=== PATIENT | male | born 1960 | race African-American/Black ===

== ENCOUNTER 2016-05-12 22:04 | Emergency (ER) | payer MEDICAID ==
[~2016-05-12] VITALS: Ht 170.2 cm; Wt 73.0 kg
[~2016-05-12 22:04] MED LIST: AMLO5 PO; LISI20 PO; MULT-28 PO
[2016-05-12 22:07] VITALS: BP 143/93; PULSE 71; RESP 16; TEMP 98; O2SAT 99
[2016-05-12 22:52] LABS: AUTOMATED NEUTROPHIL # 2.9 TH/MM3 (1.8-7.7); BASOPHIL # 0.1 TH/MM3 (0-0.2); BASOPHIL % 1.2 % (0.0-2.0); EOSINOPHIL # 0.5 TH/MM3 (0-0.4); EOSINOPHIL % 6.2 % (0.0-4.0); HEMATOCRIT 38.7 % (39.0-51.0); HEMO FLAGS DIFF FINAL; LYMPH % 45.8 % (9.0-44.0); LYMPHOCYTE # 3.6 TH/MM3 (1.0-4.8); MEAN CELL VOLUME 88.7 FL (80.0-100.0); MEAN CORPUSCULAR HEMOGLOBIN 30.3 PG (27.0-34.0); MEAN CORPUSCULAR HGB CONC 34.2 % (32.0-36.0); MONO % 9.5 % (0.0-8.0); NEUT % 37.3 % (16.0-70.0); PLATELET COUNT 282 TH/MM3 (150-450); RED BLOOD COUNT 4.36 MIL/MM3 (4.50-5.90); RED CELL DISTRIBUTION WIDTH 15.1 % (11.6-17.2); WHITE BLOOD COUNT 7.9 TH/MM3 (4.0-11.0)
[2016-05-12 22:56] LABS: BLOOD, URINE NEG (NEG); GLUCOSE,URINE NEG (NEG); KETONE, URINE NEG (NEG); MUCUS URINE FEW /lpf (OCC); NITRITE,URINE NEG (NEG); PH, URINE 6.5 (5.0-8.5); URINE COLOR YELLOW (YELLW/STRAW)
[2016-05-12 22:57] LABS: COMMENT (UR) CULT NOT INDICATED; CULTURE IF INDICATED CULT NOT INDICATED
[2016-05-12 23:20] LABS: ANION GAP 7 MEQ/L (5-15); AST (GOT) 47 U/L (15-37); BICARBONATE 26.9 MEQ/L (21.0-32.0); BLOOD UREA NITROGEN 20 MG/DL (7-18); CHLORIDE 108 MEQ/L (98-107); GLOMERULAR FILTRATION RATE 76 ML/MIN (>89); POTASSIUM 3.9 MEQ/L (3.5-5.1); SODIUM (NA) 142 MEQ/L (136-145)
[2016-05-12 23:24] LABS: ALKALINE PHOSPHATASE 54 U/L (45-117); ALT (GPT) 50 U/L (12-78); TOTAL BILIRUBIN ADULT 0.4 MG/DL (0.2-1.0)
[2016-05-12] MEDS ORDERED: SODIUM CHLOR 0.9% 1000 ML INJ 1,000 ML IV SCH (23:26)
--- NOTE | 2016-05-12 23:29 | PD ---
HPI Chief Complaint: Flank/Kidney Pain Time Seen by Provider: 23:22 Travel History International Travel<30 days: No Contact w/Intl Traveler<30days: No Traveled to known affect area: No History of Present Illness HPI Patient is a 56-year-old male who presents to emergency room with complaints of left-sided flank pain. Patient reports that he has noted increased left sided flank pain that has been ongoing for the past few weeks, reports that symptoms have been intermittent in nature. Patient reports that he has had increased pain today, reports that he came to the emergency room for evaluation of possible kidney stone. Patient reports that he has had kidney stones in the past, reports that the last stone he had he passed on its own and reports that it did not require any urological intervention. Patient denies hematuria, reports some urinary urgency and frequency at this time. Patient with no nausea or vomiting. PFSH Past Medical History Cancer: No Cardiovascular Problems: No Diabetes: No Diminished Hearing: No Endocrine: No Genitourinary: No Hepatitis: No Hiatal Hernia: No Immune Disorder: No Kidney Stones: Yes Musculoskeletal: Yes (OSTEOARTHRITIS ) Neurologic: No Psychiatric: No Respiratory: No Immunizations Current: Yes Thyroid Disease: No Tetanus Vaccination: < 5 Years Influenza Vaccination: No Past Surgical History Abdominal Surgery: No AICD: No Cardiac Surgery: No Ear Surgery: No Endocrine Surgery: No Eye Surgery: No Joint Replacement: Yes (RIGHT HIP REPLACEMENT) Oral Surgery: No Pacemaker: No Thoracic Surgery: No Other Surgery: Yes Social History Alcohol Use: Yes (SOCIAL) Tobacco Use: No Substance Use: No Allergies-Medications (Allergen,Severity, Reaction): Coded Allergies: Penicillin (Verified Allergy, Severe, DOESN'T REMEMBER, FROM CHILDHOOD, ) Reported Meds & Prescriptions Reported Meds & Active Scripts Active Ibuprofen 600 Mg Tab 600 Mg PO Q6H PRN Prinivil 20 mg (Lisinopril) 20 Mg Tab 20 Mg PO Q12 Norvasc (Amlodipine Besylate) 5 Mg Tab 5 Mg PO DAILY Reported Hm One Daily/Iron (Multivitamins/Iron) /Iron Tab 1 Tab PO DAILY Review of Systems General / Constitutional: No: Fever Eyes: No: Visual changes HENT: No: Headaches Cardiovascular: No: Chest Pain or Discomfort Respiratory: No: Shortness of Breath Gastrointestinal: No: Abdominal Pain Genitourinary: Positive: Urgency, Frequency, Dysuria, Flank Pain Musculoskeletal: No: Pain Skin: No Rash Neurologic: No: Weakness Psychiatric: No: Depression Endocrine: No: Polydipsia Hematologic/Lymphatic: No: Easy Bruising Physical Exam Narrative GENERAL: No acute distress, nontoxic SKIN: Warm and dry. HEAD: Atraumatic. Normocephalic. NECK: Trachea midline. No JVD. CARDIOVASCULAR: Regular rate and rhythm. No murmur appreciated. RESPIRATORY: No accessory muscle use. Clear to auscultation. Breath sounds equal bilaterally. GASTROINTESTINAL: Abdomen soft, non-tender, nondistended. Patient with left- sided flank pain MUSCULOSKELETAL: No obvious deformities. No clubbing. No cyanosis. No edema. NEUROLOGICAL: Awake and alert.Motor grossly within normal limits. Normal speech. PSYCHIATRIC: Appropriate mood and affect; insight and judgment normal. Data Data Last Documented VS Vital Signs Date Time Temp Pulse Resp B/P Pulse Ox O2 Delivery O2 Flow Rate FiO2 05/12/16 23:22 16 05/12/16 22:07 98.0 71 143/93 99 Orders Complete Blood Count With Diff (05/12/16 22:19) Comprehensive Metabolic Panel (05/12/16 22:19) Urinalysis - C+S If Indicated (05/12/16 22:19) Prothrombin Time / Inr (Pt) (05/12/16 23:26) Act Partial Throm Time (Ptt) (05/12/16 23:26) Ct Abd/Pel W/O Iv Contrast (05/12/16 23:26) Iv Access Insert/Monitor (05/12/16 23:26) Sodium Chlor 0.9% 1000 Ml Inj (Ns 1000 M (05/12/16 23:26) Sodium Chloride 0.9% Flush (Ns Flush) (05/12/16 23:30) Ketorolac Inj (Toradol Inj) (05/13/16 00:45) Labs Laboratory Tests Test 05/12/16 05/12/16 05/12/16 22:15 22:27 23:35 Urine Color YELLOW Urine Turbidity CLEAR Urine pH 6.5 Urine Specific Martin 1.018 Urine Protein NEG mg/dL Urine Glucose (UA) NEG mg/dL Urine Ketones NEG mg/dL Urine Occult Blood NEG Urine Nitrite NEG Urine Bilirubin NEG Urine Urobilinogen LESS THAN 2.0 MG/DL Urine Leukocyte Esterase SMALL Urine RBC LESS THAN 1 /hpf Urine WBC 4 /hpf Urine Mucus FEW /lpf Microscopic Urinalysis Comment CULT NOT INDICATED White Blood Count 7.9 TH/MM3 Red Blood Count 4.36 MIL/MM3 Hemoglobin 13.2 GM/DL Hematocrit 38.7 % Mean Corpuscular Volume 88.7 FL Mean Corpuscular Hemoglobin 30.3 PG Mean Corpuscular Hemoglobin 34.2 % Concent Red Cell Distribution Width 15.1 % Platelet Count 282 TH/MM3 Mean Platelet Volume 8.2 FL Neutrophils (%) (Auto) 37.3 % Lymphocytes (%) (Auto) 45.8 % Monocytes (%) (Auto) 9.5 % Eosinophils (%) (Auto) 6.2 % Basophils (%) (Auto) 1.2 % Neutrophils # (Auto) 2.9 TH/MM3 Lymphocytes # (Auto) 3.6 TH/MM3 Monocytes # (Auto) 0.7 TH/MM3 Eosinophils # (Auto) 0.5 TH/MM3 Basophils # (Auto) 0.1 TH/MM3 CBC Comment DIFF FINAL Differential Comment Sodium Level 142 MEQ/L Potassium Level 3.9 MEQ/L Chloride Level 108 MEQ/L Carbon Dioxide Level 26.9 MEQ/L Anion Gap 7 MEQ/L Blood Urea Nitrogen 20 MG/DL Creatinine 1.19 MG/DL Estimat Glomerular Filtration 76 ML/MIN Rate Random Glucose 98 MG/DL Calcium Level 9.0 MG/DL Total Bilirubin 0.4 MG/DL Aspartate Amino Transf 47 U/L (AST/SGOT) Alanine Aminotransferase 50 U/L (ALT/SGPT) Alkaline Phosphatase 54 U/L Total Protein 7.1 GM/DL Albumin 3.6 GM/DL Prothrombin Time 10.1 SEC Prothromb Time International 0.9 RATIO Ratio Activated Partial 26.2 SEC Thromboplast Time MDM Medical Decision Making Medical Screen Exam Complete: Yes Emergency Medical Condition: Yes Interpretation(s) Vital Signs Date Time Temp Pulse Resp B/P Pulse Ox O2 Delivery O2 Flow Rate FiO2 05/12/16 23:22 16 05/12/16 22:07 98.0 71 16 143/93 99 Differential Diagnosis Pyelonephritis, kidney stone, UTI, muscle strain Narrative Course Patient is a 56-year-old male who presents to emergency room for evaluation of possible left-sided kidney stone. Patient with history of kidney stones in the past, patient reports similar symptoms to previous Labs as well as UA and CAT scan the abdomen pelvis ordered Laboratory Tests Test 05/12/16 05/12/16 05/12/16 22:15 22:27 23:35 Urine Color YELLOW (YELLW/STRAW) Urine Turbidity CLEAR (CLEAR) Urine pH 6.5 (5.0-8.5) Urine Specific Martin 1.018 (1.002-1.035) Urine Protein NEG mg/dL (NEG-TRACE) Urine Glucose (UA) NEG mg/dL (NEG) Urine Ketones NEG mg/dL (NEG) Urine Occult Blood NEG (NEG) Urine Nitrite NEG (NEG) Urine Bilirubin NEG (NEG) Urine Urobilinogen LESS THAN 2.0 MG/DL (LESS THAN 2.0) Urine Leukocyte Esterase SMALL (NEG) Urine RBC LESS THAN 1 /hpf (0-3) Urine WBC 4 /hpf (0-5) Urine Mucus FEW /lpf (OCC) Microscopic Urinalysis Comment CULT NOT INDICATED White Blood Count 7.9 TH/MM3 (4.0-11.0) Red Blood Count 4.36 MIL/MM3 (4.50-5.90) Hemoglobin 13.2 GM/DL (13.0-17.0) Hematocrit 38.7 % (39.0-51.0) Mean Corpuscular Volume 88.7 FL (80.0-100.0) Mean Corpuscular Hemoglobin 30.3 PG (27.0-34.0) Mean Corpuscular Hemoglobin 34.2 % Concent (32.0-36.0) Red Cell Distribution Width 15.1 % (11.6-17.2) Platelet Count 282 TH/MM3 (150-450) Mean Platelet Volume 8.2 FL (7.0-11.0) Neutrophils (%) (Auto) 37.3 % (16.0-70.0) Lymphocytes (%) (Auto) 45.8 % (9.0-44.0) Monocytes (%) (Auto) 9.5 % (0.0-8.0) Eosinophils (%) (Auto) 6.2 % (0.0-4.0) Basophils (%) (Auto) 1.2 % (0.0-2.0) Neutrophils # (Auto) 2.9 TH/MM3 (1.8-7.7) Lymphocytes # (Auto) 3.6 TH/MM3 (1.0-4.8) Monocytes # (Auto) 0.7 TH/MM3 (0-0.9) Eosinophils # (Auto) 0.5 TH/MM3 (0-0.4) Basophils # (Auto) 0.1 TH/MM3 (0-0.2) CBC Comment DIFF FINAL Differential Comment Sodium Level 142 MEQ/L (136-145) Potassium Level 3.9 MEQ/L (3.5-5.1) Chloride Level 108 MEQ/L (98-107) Carbon Dioxide Level 26.9 MEQ/L (21.0-32.0) Anion Gap 7 MEQ/L (5-15) Blood Urea Nitrogen 20 MG/DL (7-18) Creatinine 1.19 MG/DL (0.60-1.30) Estimat Glomerular Filtration 76 ML/MIN (>89) Rate Random Glucose 98 MG/DL (74-106) Calcium Level 9.0 MG/DL (8.5-10.1) Total Bilirubin 0.4 MG/DL (0.2-1.0) Aspartate Amino Transf 47 U/L (15-37) (AST/SGOT) Alanine Aminotransferase 50 U/L (12-78) (ALT/SGPT) Alkaline Phosphatase 54 U/L (45-117) Total Protein 7.1 GM/DL (6.4-8.2) Albumin 3.6 GM/DL (3.4-5.0) Prothrombin Time 10.1 SEC (9.8-11.6) Prothromb Time International 0.9 RATIO Ratio Activated Partial 26.2 SEC Thromboplast Time (24.3-30.1) Last Impressions Abdomen/Pelvis CT 05/12/16 8470 Signed Impressions: Service Date/Time: Friday, May 13, 2016 00:06 - CONCLUSION: 1. Nonobstructing 3 mm calculus in the upper pole collecting system of the left kidney. Otherwise, no obstructing ureteric stones in either kidney. 2. Stable 3 x 4 cm hypodense mass lesion at the junction of the left and right hepatic lobes of the liver. Stability over the last 2-1/2 years encouraging for benignity. This may represent hemangioma. 3. Additionally, prominent periaortic lymph nodes on the left are also present in 2013 and are unchanged. These are almost certainly reactive. Sandro Weir MD Patient reevaluated, patient reports that he is feeling much better. Reviewed all labs and all studies with patient detail including all incidental findings. Patient does have a 3 mm stone in the left kidney, this should not be causing him pain at this time. Patient with most likely muscle strain to the left flank. Signs and symptoms of when to return to the emergency room was reviewed with patient. Patient will return to emergency room as needed. Diagnosis Primary Impression: Left flank pain Additional Impressions: Lesion of liver Kidney stone on left side Periaortic lymphadenopathy Patient Instructions: General Instructions Additional Instructions: Please provide patient with a copy of his lab work and CAT scan report at discharge Please follow-up with your primary care doctor as well as your urologist as soon as possible Return to emergency room as needed or if symptoms return Med/Other Pt SpecificInfo: Prescription(s) given Scripts Ibuprofen 600 Mg [id number] Mg PO Q6H PRN (Pain/Inflammation) #40 TAB Ref 0 Prov:Betty Mackey DO 05/13/16 Disposition: DISCHARGE HOME Condition: Stable Betty Mackey DO May 12, 2016 23:29
[2016-05-12] MEDS ORDERED: SODIUM CHLORIDE 0.9% FLUSH 5 ML FLUSH IVF PRN (23:30)
[2016-05-12 23:54] LABS: APTT (PATIENT) 26.2 SEC (24.3-30.1); INTERNATIONAL NORMALIZED RATIO 0.9 RATIO; PROTHROMBIN TIME - PATIENT 10.1 SEC (9.8-11.6)
[2016-05-13] MEDS ORDERED: KETOROLAC TROMETHAMINE 30 MG/ML (IVP) VIAL IV PUSH ONE (00:45)
--- NOTE | 2016-05-13 00:45 | RADRPT ---
EXAM DATE/TIME: 05/13/2016 00:06 [facility] COMPARISON: CT ABDOMEN & PELVIS W/O CONTRAST, December 25, 2013, 16:10. INDICATIONS : Left flank pain past 2 weeks. ORAL CONTRAST: No oral contrast ingested. RADIATION DOSE: 8.45 CTDIvol (mGy) MEDICAL HISTORY : Renal calculi. SURGICAL HISTORY : Left hip placement ENCOUNTER: Initial ACUITY: 2 weeks PAIN SCALE: 6/10 LOCATION: Left flank TECHNIQUE: Volumetric scanning of the abdomen and pelvis was performed. Using automated exposure control and ad justment of the mA and/or kV according to patient size, radiation dose was kept as low as reasonably achievable to obtain optimal diagnostic quality images. FINDINGS: LOWER LUNGS: The visualized lower lungs are clear. LIVER: A 3 x 4 cm low density lesion at the junction of the left and right hepatic lobes is again identified and is basically unchanged. There is no dilation of the biliary tree. No calcified gallstones. SPLEEN: Normal size without lesion. PANCREAS: Within normal limits. KIDNEYS: Normal in size and shape. Small, nonobstructing 3 mm stone in the upper pole collecting system on the left. ADRENAL GLANDS: Within normal limits. VASCULAR: There is no aortic aneurysm. BOWEL/MESENTERY: The stomach, small bowel, and colon demonstrate no acute abnormality. There is no free intraperitone al air or fluid. ABDOMINAL WALL: Within normal limits. RETROPERITONEUM: Some prominent lymph nodes are seen in the left retroperitoneum, adjacent to the aorta measuring uppe r to 1.7 cm in diameter. These were present in 2013 and are unchanged.. BLADDER: No wall thickening or mass. REPRODUCTIVE: Within normal limits. INGUINAL: There is no lymphadenopathy or hernia. MUSCULOSKELETAL: Right total hip arthroplasty. Otherwise intact. CONCLUSION: 1. Nonobstructing 3 mm calculus in the upper pole collecting system of the left kidney. Otherwise, no obstructing ureteric stones in either kidney. 2. Stable 3 x 4 cm hypodense mass lesion at the junction of the left and right hepatic lobes of the l iver. Stability over the last 2-1/2 years encouraging for benignity. This may represent hemangioma. 3. Additionally, prominent periaortic lymph nodes on the left are also present in 2013 and are unchan ged. These are almost certainly reactive. Sandro Weir MD on May 13, 2016 at 0:38 Board Certified Radiologist. This report was verified electronically.
[2016-05-13] MEDS ORDERED: IBUP-232 PO (00:51)
== END 2016-05-13 01:07 | disposition home or self-care (01) ==
LOC: NEPA 22:04
DX: R10.9 Unspecified abdominal pain (principal); K76.9 Liver disease, unspecified; N20.0 Calculus of kidney; R59.9 Enlarged lymph nodes, unspecified
CPT/HCPCS: 74176; 80053; 81001; 85025; 85610; 85730; 96374; 99284; J1885; J7030